=== PATIENT | female | born 1960 | race Caucasian/White ===

== ENCOUNTER 2024-08-29 11:01 | Outpatient (CLI) | payer MEDICARE | END 2024-08-29 11:02 | disposition home or self-care (01) | LOC: SCSRAD 11:01 | DX: M25.512 Pain in left shoulder (principal) ==

== ENCOUNTER 2024-11-10 13:09 | Outpatient (CLI) | payer MEDICARE | END 2024-11-10 13:10 | disposition home or self-care (01) | LOC: SCSMRI 13:09 | DX: M50.122 Cervical disc disorder at C5-C6 level with radiculopathy (principal); M50.123 Cervical disc disorder at C6-C7 level with radiculopathy; M25.512 Pain in left shoulder; M75.112 Incomplete rotator cuff tear or rupture of left shoulder, not specified as traumatic | CPT/HCPCS: 72141 ==